=== PATIENT | female | born 1940 | race Caucasian/White ===

== ENCOUNTER 2017-03-30 07:07 | Emergency (ER) | payer OTHER ==
[~2017-03-30] VITALS: Ht 162.6 cm; Wt 74.4 kg
[2017-03-30 07:07] VITALS: BP_SYST 161
[2017-03-30] MEDS ORDERED: NACL 0.9% 1,000 ML IV ONE (07:41)
[2017-03-30 08:02] LABS: BILIRUBIN,URINE NEGATIVE (NEGATIVE); BLOOD, URINE 1+ (NEGATIVE); CLARITY/URINE CLEAR (CLEAR); COLOR,URINE YELLOW (YELLOW); GLUCOSE,URINE NEGATIVE (NEGATIVE); KETONES,URINE NEGATIVE (NEGATIVE); LEUKOCYTE ESTERASE ,URINE 1+ (NEGATIVE); NITRITE, URINE NEGATIVE (NEGATIVE); PH,URINE 5.5 (5.0-8.0); PROTEIN URINE NEGATIVE (NEGATIVE); UROBILINOGEN,URINE 0.2 (0.2-1.0)
[2017-03-30 08:10] LABS: BASOPHILS % (AUTO) 0.3 % (0.0-2.0); EOSINOPHILS # (AUTO) 0.1 K/uL (0.0-0.4); EOSINOPHILS % (AUTO) 1.3 % (0.0-4.0); HEMATOCRIT 43.4 % (36-48); LYMPHOCYTES # (AUTO) 3.1 K/uL (1.0-5.5); LYMPHOCYTES % (AUTO) 38.6 % (20.5-51.5); MEAN CORPUSCULAR HEMOGLOBIN 30 pg (27-31); MEAN CORPUSCULAR HGB CONC 32 % (32-36); MEAN CORPUSCULAR VOLUME 92 fL (79.0-98.0); MONOCYTES # (AUTO) 0.6 K/uL (0.0-1.0); MONOCYTES % (AUTO) 6.9 % (1.7-9.3); NEUTROPHILS # (AUTO) 4.3 K/uL (1.8-7.7); NEUTROPHILS % (AUTO) 52.9 % (40.0-70.0); PLATELET COUNT (AUTO) 238 K/uL (130-430); RED BLOOD CELL COUNT(AUTO) 4.74 MIL/uL (4.2-6.2); RED CELL DISTRIBUTION WIDTH 12.3 % (9.0-15.0); WHITE BLOOD COUNT (AUTO) 8.1 K/uL (4.8-10.8)
[2017-03-30 08:21] LABS: PROTHROMBIN TIME 10.5 SECS (9.5-12.5)
[2017-03-30 08:23] LABS: BACTERIA,URINE MODERATE /HPF (None Seen); RBC,URINE 0-3 /HPF (0-3)
[2017-03-30 08:43] LABS: ANION GAP 4 (5-15); CALCIUM 9.4 mg/dL (8.4-11.0); CHLORIDE 104 mmol/L (98-107); CREATININE 0.86 mg/dL (0.55-1.30); GLUCOSE 120 mg/dL (70-99); POTASSIUM 3.8 mmol/L (3.5-5.1); SODIUM SERUM 138 mmol/L (136-145); UREA NITROGEN, BLOOD 15 mg/dL (8-21)
[2017-03-30 08:48] LABS: ALANINE AMINOTRANSFERASE 29 U/L (12-78); ALBUMIN 4.3 g/dL (3.4-4.8); ASPARTATE AMINOTRANSFERASE 25 U/L (10-37); LIPASE 165 U/L (73-393); TOTAL BILIRUBIN 0.6 mg/dL (0.0-1.0); TOTAL PROTEIN, SERUM 7.6 g/dL (6.4-8.3)
[2017-03-30 10:22] VITALS: BP_SYST 158
== END 2017-03-30 10:22 | disposition home or self-care (01) ==
LOC: SED 07:07
DX: K59.00 Constipation, unspecified (principal); N39.0 Urinary tract infection, site not specified; Z88.6 Allergy status to analgesic agent; Z88.5 Allergy status to narcotic agent; E78.5 Hyperlipidemia, unspecified
CPT/HCPCS: 36415; 74176; 80053; 81000; 82272; 83690; 83880; 84484; 85025; 85610; 85730; 87086; 93005; 96360; 99285; J7030

== ENCOUNTER 2017-12-24 01:27 | Emergency (ER) | payer OTHER ==
[~2017-12-24] VITALS: Ht 154.9 cm; Wt 74.4 kg
[2017-12-24 01:27] VITALS: BP_SYST 151
[2017-12-24] MEDS ORDERED: LORazepam 1 MG TABLET PO ONE (02:00)
[2017-12-24 03:00] VITALS: BP_SYST 149
== END 2017-12-24 03:00 | disposition home or self-care (01) ==
LOC: SED 01:27
DX: I10 Essential (primary) hypertension (principal); E78.5 Hyperlipidemia, unspecified; Z88.5 Allergy status to narcotic agent; Z88.6 Allergy status to analgesic agent
CPT/HCPCS: 81025; 93005; 99283

== ENCOUNTER 2021-03-12 16:06 | Emergency (ER) | payer OTHER ==
[~2021-03-12] VITALS: Ht 157.5 cm; Wt 78.9 kg
[2021-03-12 16:43] VITALS: BP_SYST 134
[2021-03-12 17:22] LABS: BILIRUBIN,URINE NEGATIVE (NEGATIVE); BLOOD, URINE NEGATIVE (NEGATIVE); CLARITY/URINE CLEAR (CLEAR); COLOR,URINE YELLOW (YELLOW); GLUCOSE,URINE NEGATIVE (NEGATIVE); KETONES,URINE NEGATIVE (NEGATIVE); LEUKOCYTE ESTERASE ,URINE NEGATIVE (NEGATIVE); NITRITE, URINE NEGATIVE (NEGATIVE); PROTEIN URINE NEGATIVE (NEGATIVE); UROBILINOGEN,URINE 0.2 (0.2-1.0)
[2021-03-12 19:41] VITALS: BP_SYST 136
== END 2021-03-12 19:41 | disposition home or self-care (01) ==
LOC: SED 16:06
DX: R51.9 Headache, unspecified (principal); I10 Essential (primary) hypertension; E78.5 Hyperlipidemia, unspecified; Z88.6 Allergy status to analgesic agent; Z90.49 Acquired absence of other specified parts of digestive tract; Z90.710 Acquired absence of both cervix and uterus
CPT/HCPCS: 70450-TC; 76376; 81003; 99284

== ENCOUNTER 2023-04-01 23:00 | Emergency (ER) | payer OTHER ==
[~2023-04-01] VITALS: Ht 154.9 cm; Wt 77.6 kg
[2023-04-01 23:50] VITALS: BP_SYST 138
--- NOTE | 2023-04-01 23:53 | NUR ---
Note peggyone in EDM - 04/02/23 at 0017 by [email or web address] Patient triaged and placed in waiting room. VS checked and patient appears in no acute distress at this time. Accompanied by family, awaiting available bed, and MD notified of need for MSE.
--- NOTE | 2023-04-01 23:56 | NUR ---
Patient triaged and placed in waiting room. VS checked and patient appears in no acute distress at this time. Accompanied by family , awaiting available bed, and MD notified of need for MSE.
--- NOTE | 2023-04-02 00:21 | NUR ---
ER at bedside examining patient. FIRST CONTACT WITH PT. ASSESSMENT COMPLETED. AWAITING ADDITIONAL ORDERS.
--- NOTE | 2023-04-02 00:45 | NUR ---
URINE SAMPLE COLLECTED AND SENT TO LAB
[2023-04-02 00:53] LABS: BASOPHILS % (AUTO) 0.3 % (0.0-2.0); EOSINOPHILS % (AUTO) 0.4 % (0.0-4.0); HEMOGLOBIN 13.5 g/dL (12.0-16.0); LYMPHOCYTES # (AUTO) 2.1 K/uL (1.0-5.5); MEAN CORPUSCULAR HEMOGLOBIN 31 pg (27-31); MEAN CORPUSCULAR HGB CONC 34 % (32-36); MEAN CORPUSCULAR VOLUME 92 fL (79.0-98.0); MONOCYTES # (AUTO) 0.5 K/uL (0.0-1.0); NEUTROPHILS # (AUTO) 7.8 K/uL (1.8-7.7); NEUTROPHILS % (AUTO) 74.3 % (40.0-70.0); PLATELET COUNT (AUTO) 228 K/uL (130-430); RED BLOOD CELL COUNT(AUTO) 4.35 MIL/uL (4.2-6.2); RED CELL DISTRIBUTION WIDTH 13.4 % (9.0-15.0); WHITE BLOOD COUNT (AUTO) 10.6 K/uL (4.8-10.8)
[2023-04-02 01:10] LABS: ANION GAP 9 (5-15); BILIRUBIN,URINE NEGATIVE (NEGATIVE); CALCIUM 8.6 mg/dL (8.4-11.0); CHLORIDE 102 mmol/L (98-107); CLARITY/URINE CLEAR (CLEAR); COLOR,URINE YELLOW (YELLOW); CREATININE 0.74 mg/dL (0.55-1.30); GLUCOSE 123 mg/dL (70-99); GLUCOSE,URINE NEGATIVE (NEGATIVE); KETONES,URINE NEGATIVE (NEGATIVE); LEUKOCYTE ESTERASE ,URINE TRACE (NEGATIVE); NITRITE, URINE NEGATIVE (NEGATIVE); PROTEIN URINE NEGATIVE (NEGATIVE); UREA NITROGEN, BLOOD 8 mg/dL (8-21); UROBILINOGEN,URINE 0.2 (0.2-1.0)
[2023-04-02 01:14] LABS: ALANINE AMINOTRANSFERASE 17 U/L (12-78); ALBUMIN 3.7 g/dL (3.4-4.8); ASPARTATE AMINOTRANSFERASE 17 U/L (10-37); LIPASE 80 U/L (73-393); TOTAL BILIRUBIN 0.5 mg/dL (0.0-1.0)
[2023-04-02 01:25] LABS: BLOOD, URINE 2+ (NEGATIVE)
[2023-04-02 01:28] LABS: RBC,URINE 0-3 /HPF (0-3)
[2023-04-02 01:29] LABS: BACTERIA,URINE FEW /HPF (None Seen)
--- NOTE | 2023-04-02 03:38 | NUR ---
PT YAHIR COMPLETED WITH SMALL RESULTS. MD AT BEDSIDE TO DISCUSS ADDITIONAL TREATMENT OPTIONS
[2023-04-02] MEDS ORDERED: PEG4000S4 PO ×2 (03:54→03:56)
[2023-04-02 04:05] VITALS: BP_SYST 126
--- NOTE | 2023-04-02 04:10 | NUR ---
MD AT BEDSIDE TO DISCUSS FINDINGS AND DISCHARGE PLANS
--- NOTE | 2023-04-02 04:56 | NUR ---
Patient given written and verbal discharge instructions and verbalizes understanding. ER MD TEJADA discussed with patient the results and treatment provided. Patient in stable condition. ID arm band removed. IV catheter removed intact and dressing applied, no active bleeding. Rx of GOLYTELY given. Patient educated on pain management and to follow up with PMD. Pain Scale0]. Opportunity for questions provided and answered. Medication side effect fact sheet provided.
== END 2023-04-02 04:54 | disposition home or self-care (01) ==
LOC: SED 23:00
DX: K59.00 Constipation, unspecified (principal); R10.31 Right lower quadrant pain; I10 Essential (primary) hypertension; E78.5 Hyperlipidemia, unspecified; Z88.5 Allergy status to narcotic agent; Z88.6 Allergy status to analgesic agent; Z79.899 Other long term (current) drug therapy
CPT/HCPCS: 36415; 76376; 80053; 81000; 83690; 85025; 87086; 99284